=== PATIENT | female | born 1985 ===

== ENCOUNTER 2016-09-07 06:30 | Inpatient (IN) | payer OTHER ==
--- NOTE | 2016-09-07 10:00 | PCMAN ---
OB Admission Note - History : 3 Term: 0 : 0 Abortions (S&E): 2 Livin EDC:: 09/08/16 Gestational Age (weeks): 39 Days (#/7): 6 Admit Cervical Dilation:: 4.5 Admit Cervical Effacement (%):: 100 Admit Station:: -2 Admit Presentaton:: vertex Membrane Status: Intact Labor Onset (Date): 09/07/16 Labor Onset (Time): 09:28 Contractions: Yes Contraction Frequency:: q 2-4 mins, firm to palpation Heart Rate:: 130 (moderate variability/accels present/decels absent) Status:: FHR Cat 1 EFW:: 7-7.5# Summary of Course:: Onset of care at 8w3d x 14 visits. complicated by diagnosis of latent TB and initiation of TB prophylaxis in second trimester. Has been supplementing with vitamin B6. SOCRATES based on sure LMP. Called at 0430 complaining of painful regular contractions. Arrived to [facility] in early labor and progressed to active labor in 2 hours. - Labs Blood Type: A (+) positive Hct/Hgb:: 11.6 Rubella Status: Immune GBS Status: Negative Abnormal Labs: Other (Latent TB; negative chest x ray ) - Review of Systems Neg ROS - Physical Exam General: Afebrile, No Acute Distress Psych/Mental Status: Mood/Affect Appropriate, Judgment/Insight Intact Neurological: Grossly Intact, Alert, Oriented x 4 Lungs: Clear to Auscultation Bilaterally Cardiovascular: Regular Rate and Rhythm Genitourinary: Normal Female Genitalia, No Edema Extremities: Full ROM, No Edema Skin: Normal Color, Warm, Dry - Problems (1) Active labor at term Status: Acute Code: [id number] Assessment/Plan: 31 year old at 39w6d Early active labor FHR Cat 1; patient is candidate for IA Suspected malposition (direct OP/LOP) Desires unmedicated delivery Plan: Side lying release in triage on both sides. Rebozo. Encouraged lunges with contractions and squats between. Monitoring: IA Reassess labor in 2 hours or PRN
[2016-09-07] MEDS ORDERED: LIDOCAINE 1% (PRES FREE) 30 ML VIAL ONE (10:35)
[2016-09-07] MEDS ORDERED: OXYTOCIN 10 UNITS/ML VIAL ONE (10:35)
[2016-09-07] MEDS ORDERED: LIDOCAINE Viscous 2% 15 ML UDCUP ONE (10:35)
[2016-09-07] MEDS ORDERED: OXYTOCIN IN LR 0 ML IV ONE (10:35)
[2016-09-07] MEDS ORDERED: MINERAL OIL 25 ML BOT ONE (10:35)
[2016-09-07] MEDS ORDERED: PUMP TUBING ONE (10:36)
[2016-09-07 10:49] LABS: HEMATOCRIT 38.9 % (37.0-47.0); MEAN CELL VOLUME 88.4 fl (81.0-99.0); MEAN CORPUSCULAR HEMOGLOBIN 29.5 pg (27.0-31.0); MEAN CORPUSCULAR HGB CONC 33.4 g/dl (33.0-37.0); RED CELL DISTRIBUTION WIDTH 13.2 % (11.5-14.5)
[2016-09-07 11:27] VITALS: BMI 30.9
[2016-09-07] MEDS ORDERED: LIDOCAINE 1% (PRES FREE) 30 ML VIAL SUB-Q ONE (19:39)
--- NOTE | 2016-09-07 21:21 | PDOC36 ---
Provider Note Subject: Labor Progress Note Postdated due to involvement in patient care Note: S: Working hard through contractions. Breathing and moaning. Hands and knees with sacral pressure from partner. Supported by mother in law and FOB. Feeling back pain primarily on right side. O: Doppler: 140, increases auscultated, no decreases auscultated Contractions: q 2-3 mins, firm to palpation SVE: 6/100/-2 (per RN at 1200) VS: BP 106/70, HR 115, T 37.3 C A: Active labor Progressing Remains candidate for IA Suspected malposition Good maternal coping skills Maternal tachycardia P: Exercises to facilitate rotation: lunges, standing sacral release, figure eights. Patient reports back pain is slightly better with lunges. Continued with expectant management of labor. Continuous support and coaching. Continue to encourage positions to facilitate rotation: side lying release, knee chest, and exaggerated Redman. Reassess SVE in 4 hours or PRN.
[2016-09-08] MEDS ORDERED: CALCIUM CARBONATE 500 MG TAB.CHEW PO PRN (01:19)
[2016-09-08] MEDS ORDERED: HYDROCODONE/ACETAMINOPHEN 5/325MG TABLET PO PRN (01:19)
[2016-09-08] MEDS ORDERED: BENZOCAINE/MENTHOL 60 APPLIC/BOT TP PRN (01:19)
[2016-09-08] MEDS ORDERED: ACETAMINOPHEN 325 MG TABLET PO PRN (01:19)
[2016-09-08] MEDS ORDERED: MEASLES,MUMPS&RUBELLA VACCINE 0.5 ML VIAL SUB-Q V ONE (01:19)
[2016-09-08] MEDS ORDERED: DIPHTH,PERTUSS(ACELL),TET VAC 0.5 ML VIAL IM V ONE (01:19)
[2016-09-08] MEDS ORDERED: LANOLIN 50 APPLIC/7G TUBE TP PRN (01:19)
--- NOTE | 2016-09-08 01:39 | PCMDEL ---
Delivery Note - Labor 1st stage (hr/min):: 14h9m 2nd stage (hr/min):: 45m 3rd stage (hr/min):: 11m Total (hr/min):: 15h5m Pushed (hr/min):: 45m - Delivery Delivery (Date): 09/08/16 Delivery (Time): 00:04 Gender: Female Presentation: Cephalic Position: OA Umbilical Cord: 3 Vessel Delayed Cord Clamping:: < 1 min 1 Minute Total: 5 5 Minute Total: 8 Placenta:: shultze, intact EBL:: 500ml Perineum:: bilateral 1st degree vaginal & superficial left labial, repaired Suture:: 3-0 & 4-0 vicryl Anesthesia/Meds:: lidocaine for repair Length ROM:: 2h32m Comments:: 1st stage summary: Emilee labored well in a variety of positions. She remained a candidate for IA throughout 1st stage. She had a persistent anterior lip that was manually reduced during pushing after trying a variety of positions and not pushing during contractions, which were not successful in resolving the anterior lip. SROM for clear fluid occurred during an SVE at approximately 9.5cm dilation. 2nd stage summary: Pt remained a candidate for IA throughout. Pt achieved an of a viable female . FOB assisted with delivery of head, which birthed slowly and turtle sign was noted. At this point, CNM took over delivery fully and a shoulder dystocia was diagnosed. Help was called. Pt was put into [facility] and CNM attempted to deliver posterior arm unsuccessfully. Anterior shoulder delivered with suprapubic pressure and the body delivered slowly. Baby was put to mother's chest for drying and stimulation, and was noted to be limp and pale with poor respiratory efforts. Cord was clamped and cut, and baby was taken to the warmer where she was deleed. No CPAP or PPV was needed, as heart rate consistently remained above 100 BPM. Apgars were 5 & 8. Clavicles were checked by RN and CNM and noted to be intact bilaterally. Baby was returned to mom by 4 minutes of life. Head to body delivery was 75 seconds. 3rd stage summary: Placenta delivered with controlled cord traction and maternal effort. Fundus firmed with massage 1BF below the umbilicus. On inspection, 2 bilateral 1st degree vaginal lacerations near the perineum were noted, both of which were repaired with 3-0 vicryl under lidocaine anesthesia. A superficial left labial laceration and a superficial central vaginal laceration were noted and both were repaired with 4-0 vicryl under lidocaine anesthesia. Upon completion of the repair, all lacerations were hemostatic and well-approximated. [id number]. Baby and mom [id number] and bonding well. At time of note, weight and length are pending.
[2016-09-08] MEDS: IBUPROFEN 800 MG TABLET PO SCH ×3 (02:13→19:38)
[2016-09-08] MEDS: DOCUSATE SODIUM 100 MG CAPSULE PO PRN (08:33)
[2016-09-08] MEDS ORDERED: ISONIAZID 300 MG PO SCH (09:00)
[2016-09-08] MEDS ORDERED: ISONIAZID 300 MG TABLET PO SCH (09:00)
[2016-09-09] MEDS: IBUPROFEN 800 MG TABLET PO SCH ×3 (03:19→15:46)
[2016-09-09] MEDS: DOCUSATE SODIUM 100 MG CAPSULE PO PRN (08:54)
--- NOTE | 2016-09-09 11:20 | PDOC39B ---
Hospital Course: ADMIT DATE: 09/07/16 DISCHARGE DATE: 09/09/16 ADMISSION DIAGNOSES: Active Labor PROCEDURES: HISTORY OF PRESENT ILLNESS: 31 year old G3 T0 L0 at 40 weeks 0 days presenting with active labor. HOSPITAL COURSE: The patient delivered with a shoulder dystocia on 09/08/16, but then had a normal course with the baby vigorous. By day of discharge the patient is stable, well after support and ready to go home tonight. - Physical Exam Vital Signs: Temp Pulse Resp BP Pulse Ox 98.1 F 89 16 108/60 09/09/16 08:55 09/09/16 08:55 09/09/16 08:55 09/09/16 08:55 General: Afebrile, No Acute Distress Psych/Mental Status: Mood/Affect Appropriate, Bonding Well Neurological: Alert, Oriented x 4 Cardiovascular: Regular Rate and Rhythm Breast: Soft, Other (Nipples red, not cracked) Fundus: Firm, Below Umbilicus Genitourinary: No Edema Lochia: Light - Discharge Diagnosis (1) care following vaginal delivery Status: Acute - Discharge Plan Condition: Good Disposition: Home Forms: Discharge Instructions Follow-Up: Leighann Kemp CNM [Certified Nurse [employer]] - 09/25/16
[2016-09-09 15:30] VITALS: BP 126/70
== END 2016-09-09 18:15 | disposition home or self-care (01) | DRG 774 ==
LOC: UNDOADMIN 06:30 → FBC 06:30
PROVIDERS: ADMIT Licensed Practical Nurse; ATTEND Advanced Practice Midwife
PROC: 10E0XZZ Delivery of Products of Conception, External Approach (ICD-10-PCS; principal; 2016-09-08)
PROC: 0UQM0ZZ Repair Vulva, Open Approach (ICD-10-PCS; 2016-09-08)
PROC: 0HQ9XZZ Repair Perineum Skin, External Approach (ICD-10-PCS; 2016-09-08)
DX: O98.02 Tuberculosis complicating childbirth (principal); O99.42 Diseases of the circulatory system complicating childbirth; R00.0 Tachycardia, unspecified; O32.8XX0 Maternal care for other malpresentation of fetus, not applicable or unspecified; O70.0 First degree perineal laceration during delivery; O66.0 Obstructed labor due to shoulder dystocia; Z3A.39 39 weeks gestation of pregnancy; Z37.0 Single live birth

== ENCOUNTER 2016-09-14 11:08 | Outpatient (CLI) | payer OTHER | END 2016-09-14 11:09 | disposition home or self-care (01) | LOC: BABIESSH 11:08 | PROVIDERS: ATTEND Advanced Practice Midwife | DX: Z39.1 Encounter for care and examination of lactating mother (principal) ==

== ENCOUNTER 2016-09-18 08:54 | Outpatient (CLI) | payer OTHER | END 2016-09-18 08:55 | disposition home or self-care (01) | LOC: BABIESSH 08:54 | PROVIDERS: ATTEND Advanced Practice Midwife | DX: Z39.1 Encounter for care and examination of lactating mother (principal) ==

== ENCOUNTER 2016-09-25 08:48 | Outpatient (CLI) | payer OTHER | END 2016-09-25 08:49 | disposition home or self-care (01) | LOC: BABIESSH 08:48 | PROVIDERS: ATTEND Advanced Practice Midwife | DX: Z39.1 Encounter for care and examination of lactating mother (principal) ==

== ENCOUNTER 2016-09-30 08:56 | Outpatient (CLI) | payer OTHER | END 2016-09-30 08:57 | disposition home or self-care (01) | LOC: BABIESSH 08:56 | PROVIDERS: ATTEND Advanced Practice Midwife | DX: Z39.1 Encounter for care and examination of lactating mother (principal) ==

== ENCOUNTER 2016-10-07 08:58 | Outpatient (CLI) | payer OTHER | END 2016-10-07 08:59 | disposition home or self-care (01) | LOC: BABIESSH 08:58 | PROVIDERS: ATTEND Advanced Practice Midwife | DX: Z39.1 Encounter for care and examination of lactating mother (principal) ==